=== PATIENT | female | born 1990 | race American Indian/Alaskan Native ===

== ENCOUNTER 2022-01-30 18:44 | Emergency (ER) | payer SELFPAY ==
[2022-01-30 21:04] LABS: Bacteria,Urine 1+ /HPF (Negative); Mucus,Urine 2+ /HPF
[2022-01-30 21:06] LABS: Color,Urine Yellow (Yellow)
[2022-01-30 21:07] LABS: Bilirubin,Urine Negative (Negative); Blood,Urine Negative (Negative)
[2022-01-30 22:06] LABS: Basophils # (Auto) 0.1 K/mm3 (0.0-0.1); Eosinophils # (Auto) 0.5 K/mm3 (0.0-0.4); Eosinophils % (Auto) 8.6 % (0.0-4.3); Hematocrit 40.6 % (30.3-42.9); Hemoglobin 13.1 gm/dl (10.1-14.3); Lymphocytes # (Auto) 2.3 K/mm3 (1.2-5.4); Lymphocytes % (Auto) 40.5 % (13.4-35.0); Mean Corpuscular HGB Conc 32 % (30-34); Mean Corpuscular Volume 87 fl (79-97); Monocytes # (Auto) 0.4 K/mm3 (0.0-0.8); Monocytes % (Auto) 7.3 % (0.0-7.3); Platelet Count 234 K/mm3 (140-440); Red Blood Count 4.68 M/mm3 (3.65-5.03)
[2022-01-30 22:12] LABS: Alanine Aminotransferase 19 units/L (7-56); Albumin 4.2 g/dL (3.9-5); Blood Urea Nitrogen 9 mg/dL (7-17); Calcium 9.3 mg/dL (8.4-10.2); Hemolysis Index 9
[2022-01-30 22:23] LABS: BUN/Creatinine Ratio 15
--- NOTE | 2022-01-30 23:52 | Emergency Department Report ---
ED Female HPI - General Chief complaint: Abdominal Pain Stated complaint: ABD PAIN Time Seen by Provider: 01/30/22 22:31 Source: patient Mode of arrival: Ambulatory Limitations: No Limitations - History of Present Illness Initial comments: 31-year-old man female Autumn emerged department complaining of pelvic pain and has suspicion of an IUD abnormality. Her IUD was placed back in 2019 she reports having occasional cramping pain since that time has been having pain flareup this past past dB reports no vaginal bleeding. - Fever she states it was normal, but cannot quite detail the consistency of discharge but has a low suspicion of an STD she does not think her spouse is doing anything out of the ordinary. Reports no fever, chills, sweats. No chest pain or palpitations, no hemoptysis no hematemesis hematochezia. MD Complaint: vaginal discharge, pelvic pain Radiation: suprapubic Severity: mild Quality: cramping, dull Consistency: constant Improves with: none Worsens with: none Are you Now?: No Associated Symptoms: denies other symptoms - Related Data Previous Rx's Medication Instructions Recorded Last Taken Type Ketorolac [Toradol] 10 mg PO Q6H PRN #14 01/31/22 Unknown Rx Allergies Allergy/AdvReac Type Severity Reaction Status Date / Time No Known Allergies Allergy Verified 01/30/22 20:12 ED Review of Systems ROS: Stated complaint: ABD PAIN Other details as noted in HPI Comment: All other systems reviewed and negative ED Past Medical Hx - Medications Home Medications: Home Medications Medication Instructions Recorded Confirmed Last Taken Type Ketorolac [Toradol] 10 mg PO Q6H PRN #14 01/31/22 Unknown Rx ED Physical Exam - General Limitations: No Limitations General appearance: alert, in no apparent distress - Head Head exam: Present: atraumatic, normocephalic - Eye Eye exam: Present: normal appearance, PERRL, EOMI Pupils: Present: normal accommodation - ENT ENT exam: Present: normal exam, normal orophraynx, mucous membranes moist, TM's normal bilaterally - Neck Neck exam: Present: normal inspection, full ROM, lymphadenopathy - Respiratory Respiratory exam: Present: normal lung sounds bilaterally. Absent: respiratory distress, wheezes, rales - Cardiovascular Cardiovascular Exam: Present: regular rate, normal rhythm. Absent: systolic murmur, diastolic murmur, rubs, gallop - GI/Abdominal GI/Abdominal exam: Present: soft, normal bowel sounds - Extremities Exam Extremities exam: Present: normal inspection, normal capillary refill - Back Exam Back exam: Present: normal inspection. Absent: CVA tenderness (R), CVA tenderness (L) - Neurological Exam Neurological exam: Present: alert, oriented X3, CN II-XII intact, normal gait - Psychiatric Psychiatric exam: Present: normal affect, normal mood. Absent: anxious, flat affect - Skin Skin exam: Present: warm, dry, intact, normal color. Absent: rash, cyanosis, diaphoretic ED Course Vital Signs 01/30/22 19:44 Temperature 99.5 F Pulse Rate 70 Respiratory 18 Rate Blood Pressure 139/74 O2 Sat by Pulse 99 Oximetry ED Medical Decision Making - Lab Data Result diagrams: 01/30/22 21:09 01/30/22 21:09 - Radiology Data Radiology results: [place] [address] Ultrasound Report Signed Patient: JAZMINE STANTON MR#: [id number] : 1990 Acct:[id number] Age/Sex: 31 / F ADM Date: 01/30/22 Loc: ED Attending Dr: Ordering Physician: EVERTON CORDOVA Date of Service: 01/30/22 Procedure(s): US pelvic complete Accession Number(s): [id number] cc: EVERTON CORDOVA ULTRASOUND PELVIS INDICATION / CLINICAL INFORMATION: IUD pain. TECHNIQUE: Transabdominal. Duplex Color Doppler used: Yes. COMPARISON: None available FINDINGS: UTERUS: The uterus measures 7 x 3.5 x 4.5 cm. Endometrial stripe measures 0.5 cm. IUD in the fundal endometrium. 1.9 x 1.4 x 1.7 cm hypoechoic mass in the lower uterine segment, likely reflecting uterine fibroid. RIGHT ADNEXA: No significant ovarian cyst or mass. Normal color Doppler blood flow. LEFT ADNEXA: No significant ovarian cyst or mass. Normal color Doppler blood flow. URINARY BLADDER: No significant abnormality. FREE FLUID: None. ADDITIONAL FINDINGS: None. IMPRESSION: 1. IUD in satisfactory position. 2. Small probable fibroid at the lower uterine segment. 3. No evidence of acute abnormality. Signer Name: Parmjit Denton MD Signed: 01/31/2022 1:07 AM Workstation Name: [id number] Transcribed By: JS Dictated By: PARMJIT DENTON MD Electronically Authenticated By: PARMJIT DENTON MD Signed Date/Time: 01/31/22106 DD/ 4 TD/TT: - Medical Decision Making This patient presents with abdominal pain of unclear etiology. Their evaluation has not identified a emergent etiology for the abdominal pain. Specifically, given the very benign exam, normal laboratory studies, and lack of significant risk factors, I have a very low suspicion for appendicitis, ischemic bowel, bowel perforation, or any other life threatening disease. I have discussed with the patient the level of uncertainty with undifferentiated abdominal pain and clearly explained the need to follow-up as noted on the discharge instructions, or return to the Emergency Department immediately if the pain worsens, develops fever, persistent and uncontrollable vomiting, or for any new symptoms or concerns. I discussed with the patient that this presentation today for abdominal pain could represent a significant risk for an acute abdominal process. Although the tests in the ED were essentially normal, there is still a possibility of a process such as appendicitis, diverticulitis, cholecystitis, ulcer, early bowel obstruction, mesenteric ischemia, kidney stone, or even kidney infection which could subsequently cause disability or . The patient understands that they must return within 24 hours for a recheck or see their ph ysician within 24 hours for re-exam due to the possibility of significant surgical or medical process. Critical care attestation.: If time is entered above; I have spent that time in minutes in the direct care of this critically ill patient, excluding procedure time. ED Disposition Clinical Impression: Abdominal pain, Concern about STD in female without diagnosis Disposition: HOME / SELF CARE / HOMELESS Is pt being admited?: No Does the pt Need Aspirin: No Condition: Stable Instructions: Abdominal Pain (ED), Safe Sex, Chlamydia, Female, [id number], Gonorrhea Test, Abdominal Pain, Adult, [id number] Prescriptions: Ketorolac [Toradol] 10 mg PO Q6H PRN #14 PRN Reason: Pain Referrals: MD [facility] [Other] - 3-5 Days [facility] [Outside] - 3-5 Days (To be sure to follow-up with your department for for evaluation of your STD panel)
--- NOTE | 2022-01-31 01:11 | Ultrasound Report ---
ULTRASOUND PELVIS INDICATION / CLINICAL INFORMATION: IUD pain. TECHNIQUE: Transabdominal. Duplex Color Doppler used: Yes. COMPARISON: None available FINDINGS: UTERUS: The uterus measures 7 x 3.5 x 4.5 cm. Endometrial stripe measures 0.5 cm. IUD in the fundal e ndometrium. 1.9 x 1.4 x 1.7 cm hypoechoic mass in the lower uterine segment, likely reflecting uterin e fibroid. RIGHT ADNEXA: No significant ovarian cyst or mass. Normal color Doppler blood flow. LEFT ADNEXA: No significant ovarian cyst or mass. Normal color Doppler blood flow. URINARY BLADDER: No significant abnormality. FREE FLUID: None. ADDITIONAL FINDINGS: None. IMPRESSION: 1. IUD in satisfactory position. 2. Small probable fibroid at the lower uterine segment. 3. No evidence of acute abnormality. Signer Name: Anurag Ho MD Signed: 01/31/2022 1:07 AM Workstation Name: [id number]
[2022-01-31 02:48] VITALS: BP 125/76
== END 2022-01-31 02:48 | disposition home or self-care (01) ==
LOC: ED 18:44
DX: R10.30 Lower abdominal pain, unspecified (principal); Z20.2 Contact with and (suspected) exposure to infections with a predominantly sexual mode of transmission; Z79.899 Other long term (current) drug therapy
CPT/HCPCS: 36415; 76856; 80053; 81001; 84703; 85025; 99284